=== PATIENT | female | born 1945 | race Caucasian/White ===

== ENCOUNTER 2016-09-25 07:52 | Emergency (ER) | payer BC, MEDICARE ==
[2016-09-25 08:02] VITALS: BMI 29.2
[2016-09-25] MEDS ORDERED: Albuterol-Ipratrop 3 mg / 0.5 (3 ml) UD INH STA ×3 (08:10→08:42)
[2016-09-25] MEDS ORDERED: Albuterol-Ipratrop 3 mg / 0.5 (3 ml) UD ONE ×2 (08:17→08:41)
[2016-09-25] MEDS ORDERED: Magnesium Sulfate 1 gm in D5W 1 GM/100 ML BAG IVPB ONE ×2 (08:18→10:11)
[2016-09-25 08:36] LABS: BASO # 0.1 K/uL (0.0-0.2); BASO % 0.7 % (0.0-2.0); EOS # 0.9 K/uL (0.0-0.7); EOS % 8.1 % (0.0-4.0); HEMATOCRIT 43.1 % (34.0-47.0); LYMPH # 2.3 K/uL (1.0-4.3); LYMPH % 20.1 % (20.0-40.0); MEAN CELL VOLUME 90.2 fL (81.0-99.0); MEAN CORPUSCULAR HEMOGLOBIN 29.1 pg (27.0-31.0); MEAN CORPUSCULAR HGB CONC 32.3 g/dL (33.0-37.0); MEAN PLATELET VOLUME 10.1 fL (7.2-11.7); MONO # 0.7 K/uL (0.0-0.8); MONO % 6.4 % (0.0-10.0); RED CELL DISTRIBUTION WIDTH 13.4 % (11.5-14.5); WHITE BLOOD COUNT 11.6 K/uL (4.8-10.8)
--- NOTE | 2016-09-25 08:38 | C.PDOC ---
History Of Present Illness 71 y/o female pmhx asthma presents to the ED with complains of increasing SOB/ asthma symptoms over the past 6 days with associated dry cough. Pt denies fever , chest pain, recent travel or sick contacts. Pt has been using albuterol pump with minimal relief. Chief Complaint (Nursing): Shortness Of Breath History Per: Patient History/Exam Limitations: no limitations Onset/Duration Of Symptoms: Days Current Symptoms Are (Timing): Worse Current Respiratory Medications: Albuterol Severity: Moderate Associated Symptoms: denies: Fever, Chest Pain, Productive Cough Recent travel outside of the [place]: No Past Medical History Reviewed: Historical Data, Nursing Documentation, Vital Signs Vital Signs: Last Vital Signs Temp 98.8 F 09/25/16 10:45 Pulse 66 09/25/16 10:44 Resp 16 09/25/16 10:44 BP 145/59 L 09/25/16 10:44 Pulse Ox 98 09/25/16 10:44 - Medical History PMH: Anxiety, Arthritis, Asthma, Back Problems, HTN, Hypercholesterolemia Surgical History: Back Surgery Family History: States: Unknown Family Hx - Social History Hx Alcohol Use: No Hx Substance Use: No - Immunization History Hx Tetanus Toxoid Vaccination: No Hx Influenza Vaccination: No Hx Pneumococcal Vaccination: No Review Of Systems Except As Marked, All Systems Reviewed And Found Negative. Constitutional: Negative for: Fever Cardiovascular: Negative for: Chest Pain Respiratory: Positive for: Cough (dry), Shortness of Breath Physical Exam - Physical Exam Appears: Non-toxic, In Acute Distress (mild) Skin: Warm, Dry, No Rash Head: Atraumatic, Normacephalic Throat: Normal, No Erythema Neck: Normal, Normal ROM, Supple Chest: Symmetrical Cardiovascular: Rhythm Regular, No Murmur Respiratory: No Rales, No Rhonchi, Wheezing (bilateral expiratory wheezing in all adan), Other (good air entry) Gastrointestinal/Abdominal: Normal Exam, Soft, No Tenderness Extremity: Normal ROM, No Pedal Edema Pulses: Left Dorsalis Pedis: Normal, Right Dorsalis Pedis: Normal Neurological/Psych: Oriented x3, Normal Speech ED Course And Treatment - Laboratory Results Result Diagrams: 09/25/16 08:30 09/25/16 08:30 ECG: Interpreted By Me, Viewed By Me ECG Rhythm: Sinus Rhythm Interpretation Of ECG: Normal axis and intervals Rate From EC (BPM) O2 Sat by Pulse Oximetry: 98 (room air) Pulse Ox Interpretation: Normal Medical Decision Making Medical Decision Makin am re-eval: Patient feeling better and denies SOB. Lungs are clear b/l. Patient to be discharged with Rx and follow up instructions. Disposition - Disposition Referrals: Rosette Carreon, [Non-Staff] - Disposition: HOME/ ROUTINE Disposition Time: 10:30 Condition: IMPROVED Additional Instructions: Thank you for letting us take care of you today. Your provider was Dr. Quinonez. You were treated for asthma and pneumonia. The emergency medical care you received today was directed at your acute symptoms. If you were prescribed any medication, please fill it and take as directed. It may take several days for your symptoms to resolve. Return to the Emergency Department if your symptoms worsen, do not improve, or if you have any other problems. Please contact your doctor or call one of the physicians/clinics you have been referred to that are listed on the Patient Visit Information form that is included in your discharge packet. Bring any paperwork you were given at discharge with you along with any medications you are taking to your follow up visit. Our treatment cannot replace ongoing medical care by a primary care provider (PCP) outside of the emergency department. Thank you for allowing the [facility] team to be part of your care today. Follow up with your doctor in 2-3 days to be re-evaluated. Prescriptions: levoFLOXacin [Levaquin] 750 mg PO DAILY #5 tab predniSONE [Prednisone] 40 mg PO DAILY #10 tab Instructions: Asthma (ED), Community Acquired Pneumonia (ED) Forms: Gen Discharge Inst German Print Language: AZERBAIJANI - Clinical Impression Clinical Impression: Respiratory tract infection, Asthma - Scribe Statement The provider has reviewed the documentation as recorded by the Marbella Loera Provider Attestation: All medical record entries made by the Marbella were at my direction and personally dictated by me. I have reviewed the chart and agree that the record accurately reflects my personal performance of the history, physical exam, medical decision making, and the department course for this patient. I have also personally directed, reviewed, and agree with the discharge instructions and disposition.
[2016-09-25] MEDS: Magnesium Sulfate 1 gm in D5W 1 GM/100 ML BAG IVPB SCH ×2 (08:41→10:13)
[2016-09-25 08:53] VITALS: O2SAT 98
[2016-09-25 08:58] LABS: CHLORIDE 98 mmol/L (98-107)
[2016-09-25 08:59] LABS: SODIUM 137 mmol/L (132-148)
[2016-09-25 09:01] LABS: ALB/GLOB RATIO 1.3 (1.0-2.1); ALKALINE PHOSPHATASE 81 U/L (38-126); AST/SGOT 27 U/L (14-36); BILIRUBIN,TOTAL 0.7 mg/dL (0.2-1.3); BLOOD UREA NITROGEN 13 mg/dL (7-17); CARBON DIOXIDE 27 mmol/L (22-30); GFR AFRICAN-AMERICAN > 60; GLUCOSE,RANDOM 267 mg/dL (65-105); TOTAL PROTEIN 6.6 g/dL (6.3-8.3)
[2016-09-25 09:02] LABS: ALT/SGPT 28 U/L (9-52); CALCIUM 8.3 mg/dl (8.6-10.4)
--- NOTE | 2016-09-25 10:23 | RAD ---
PROCEDURE: CHEST RADIOGRAPH, 1 VIEW. Technique: Single view portable semi erect @ 08:40. HISTORY: SOB COMPARISON: None available. FINDINGS: LUNGS: Increased markings at the right lung base likely small infiltrate/pneumonia. PLEURA: No pneumothorax or pleural fluid seen. CARDIOVASCULAR: No radiographic findings to suggest acute or significant cardiovascular disease. OSSEOUS STRUCTURES: No significant abnormalities. VISUALIZED UPPER ABDOMEN: Normal. OTHER FINDINGS: None. IMPRESSION: Right lower lobe infiltrate.
[2016-09-25 10:45] VITALS: BP 145/59; PULSE 66; RESP 16
[2016-09-25 10:46] VITALS: TEMP 98.8
--- NOTE | 2016-09-26 18:34 | CARD ---
APPROVED REPORT EKG Measurement Heart [id number] <Conclusion> Normal sinus rhythm Nonspecific T wave abnormality Prolonged QT Abnormal ECG
== END 2016-09-25 11:15 | disposition home or self-care (01) ==
LOC: C.ER 07:52
DX: J06.9 Acute upper respiratory infection, unspecified (principal); J45.909 Unspecified asthma, uncomplicated
CPT/HCPCS: 71010; 80053; 84484; 85025; 93005; 94640; 96365; 96366; 96375; 99285; J2930; J3475

== ENCOUNTER 2016-12-08 12:18 | Emergency (ER) | payer MEDICARE ==
[2016-12-08 12:19] VITALS: BMI 29.2
[2016-12-08] MEDS ORDERED: Sodium Chloride 0.9% 1,000 ML IV ONE (13:14)
[2016-12-08] MEDS ORDERED: Sodium Chloride 0.9% 1,000 ML ONE (13:29)
[2016-12-08 13:34] LABS: BASO # 0.1 K/uL (0.0-0.2); BASO % 1.1 % (0.0-2.0); EOS # 0.2 K/uL (0.0-0.7); EOS % 2.6 % (0.0-4.0); HEMOGLOBIN 14.6 g/dL (11.0-16.0); LYMPH % 22.8 % (20.0-40.0); MEAN CELL VOLUME 88.3 fL (81.0-99.0); MEAN CORPUSCULAR HEMOGLOBIN 29.3 pg (27.0-31.0); MEAN CORPUSCULAR HGB CONC 33.2 g/dL (33.0-37.0); MEAN PLATELET VOLUME 10.7 fL (7.2-11.7); MONO # 0.5 K/uL (0.0-0.8); MONO % 5.5 % (0.0-10.0); NEUT # 5.8 K/uL (1.8-7.0); NRBC % 0.1 % (0.0-2.0); RBC 4.96 Mil/uL (3.80-5.20); RED CELL DISTRIBUTION WIDTH 13.3 % (11.5-14.5); WHITE BLOOD COUNT 8.6 K/uL (4.8-10.8)
[2016-12-08 13:44] LABS: ALB/GLOB RATIO 1.4 (1.0-2.1); ALBUMIN 3.6 g/dL (3.5-5.0); ALT/SGPT 33 U/L (9-52); AST/SGOT 28 U/L (14-36); BLOOD UREA NITROGEN 15 mg/dL (7-17); CALCIUM 8.3 mg/dl (8.6-10.4); GFR AFRICAN-AMERICAN > 60; GFR NON-AFRICAN AMERICAN > 60
[2016-12-08 13:45] LABS: LIPASE 31 U/L (23-300)
[2016-12-08 13:49] LABS: SQUAMOUS EPITHIAL 4 /hpf (0-5); URINE BILIRUBIN NEGATIVE (NEGATIVE); URINE BLOOD NEGATIVE (NEGATIVE); URINE CLARITY Clear (Clear); URINE COLOR Yellow (YELLOW); URINE GLUCOSE (UA) 2+ mg/dL (Normal); URINE LEUKOCYTE ESTERASE TRACE Leu/uL (Negative); URINE NITRATE NEGATIVE (NEGATIVE); URINE PROTEIN NEGATIVE (NEGATIVE); URINE UROBILINOGEN NORMAL mg/dL (0.2-1.0)
--- NOTE | 2016-12-08 14:10 | C.PDOC ---
History Of Present Illness Aranza Foster, a 71 year old female, presents to the Ed complaining of cramping right sided abdominal pain. Which radiates to her right upper flank and right thigh. Patient is asymptomatic at this time. Denies constipation. Time Seen by Provider: 12/08/16 13:07 Chief Complaint (Nursing): Abdominal Pain Past Medical History Vital Signs: Last Vital Signs Temp 97.9 F 12/08/16 14:21 Pulse 54 L 12/08/16 14:21 Resp 18 12/08/16 14:21 BP 173/79 H 12/08/16 14:21 Pulse Ox 98 12/08/16 14:21 - Medical History PMH: Anxiety, Arthritis, Asthma, Back Problems, HTN, Hypercholesterolemia Surgical History: Back Surgery Family History: States: Unknown Family Hx - Social History Hx Alcohol Use: No Hx Substance Use: No - Immunization History Hx Tetanus Toxoid Vaccination: No Hx Influenza Vaccination: No Hx Pneumococcal Vaccination: No ED Course And Treatment - Laboratory Results Result Diagrams: 12/08/16 13:14 12/08/16 13:28 Lab Interpretation: Normal (trop neg, mild elev glu) ECG: Interpreted By Me ECG Rhythm: Sinus Rhythm (53) ECG Interpretation: Normal Rate From EC O2 Sat by Pulse Oximetry: 95 Pulse Ox Interpretation: Normal - Radiology CXR: Interpreted by Me CXR Interpretation: Yes: No Acute Disease - Other Rad abd x 2 X-Ray: Interpreted by Me (increased Stool R colon, no obst/FA) Reevaluation Time: 14:08 Reassessment Condition: Improved (remains asymptomatic.) Medical Decision Making Medical Decision Making: constipation R colon LOW susp of renal colic, no blood no CV tender Initial Plan: * EKG * Comp Metabolic Panel * Lipase * Troponin * CBC * Obstructive series * NS 1000mls IV 1000mls/hr * Toradol 30mg IVP * Urinalysis * Reevaluation Disposition Doctor Will See Patient In The: Office Counseled Patient/Family Regarding: Studies Performed, Diagnosis - Disposition Referrals: Aparna Brandon [Staff Provider] - Disposition: HOME/ ROUTINE Disposition Time: 14:10 Condition: GOOD Additional Instructions: Joelle un purgante- Citrato de Magnesio- ahora, y re-evalua st molestia del abdomen despues de usar el ike 2-3 veces Sigue un esuavesante de los heces 2 veces al enmanuel Cambios de dieta y ejercisio para ayudar en PREVENIR el estrenemiento. Sigue con Dra Brandon Instructions: Constipation (ED), Gas and Bloating (ED) Forms: Trivie (Lebanese) Print Language: UPPER SORBIAN - Clinical Impression Clinical Impression: Colicky right lower quadrant pain - Scribe Statement The provider has reviewed the documentation as recorded by the Scribbradley Foster All medical record entries made by the Scribe were at my direction and personally dictated by me. I have reviewed the chart and agree that the record accurately reflects my personal performance of the history, physical exam, medical decision making, and the department course for this patient. I have also personally directed, reviewed, and agree with the discharge instructions and disposition.
[2016-12-08 14:23] VITALS: BP 173/79; PULSE 54; RESP 18; TEMP 97.9
[2016-12-08 14:32] VITALS: O2SAT 95
--- NOTE | 2016-12-08 16:32 | RAD ---
Abdomen four views History: Abdominal pain. Comparison: None available. Findings: Diffuse increased interstitial lung markings. Patchy increased markings at the left lung base. Right hilar prominence. Mammilated right hemidiaphragm. Heart size within normal limits. Degenerative changes in the spine. Calcified phleboliths in the right hemipelvis. Degenerative changes in the bilateral hips with subchondral sclerosis. Impression: Moderate fecal retention in the colon.
== END 2016-12-08 14:30 | disposition home or self-care (01) ==
LOC: C.ER 12:18
DX: R10.31 Right lower quadrant pain (principal); E78.00 Pure hypercholesterolemia, unspecified; I10 Essential (primary) hypertension
CPT/HCPCS: 74022; 80053; 81001; 83690; 84484; 85025; 96361; 96374; 99285; J1885; J7040